=== PATIENT | male | born 1980 | race Caucasian/White ===

== ENCOUNTER 2023-08-07 18:01 | Emergency (ER) | payer BC, SELFPAY ==
[2023-08-07 18:09] VITALS: BP 102/70; PULSE 82; RESP 18; TEMP 35.9; O2SAT 99; BMI 25.0
[2023-08-07 19:11] LABS: PCR FLU A Negative PCR FLU A (Negative); PCR FLU B Negative PCR FLU B (Negative); PCR RSV Negative PCR RSV (Negative); SARS PCR* POSITIVE SARS-CoV-2 (Negative)
--- NOTE | 2023-08-07 19:19 | ED_ITS ---
HPI - General Adult General Date Seen: 08/07/23 Chief complaint: Cough Stated complaint: Cough Time Seen by Provider: 08/07/23 18:18 Source: patient Mode of arrival: ambulatory Limitations: no limitations History of Present Illness HPI narrative: Patient is a 42-year-old male who is here with flu symptoms for the past 5 days or so. Decided to come in today because he says despite taking cold medicines at home he is not able to kick the illness. Nothing specifically worse today. He has not run fevers. He has felt fatigued, achy, congested, cough. No ill contacts. Denies medical history, does smoke. Related Data Home Medications Medication Instructions Recorded Confirmed No Known Home Medications 11/09/22 08/07/23 Allergies Allergy/AdvReac Type Severity Reaction Status Date / Time No Known Drug Allergies Allergy Verified 08/07/23 18:13 Review of Systems Status of ROS: Reports: 6 or more systems reviewed and unremarkable except as noted in History and below PFSH PFS Social History Smoking Status: Current every day smoker Do you use any of these nicotine containing products: None Second hand tobacco smoke exposure: Yes How often do you have a drink containing alcohol: 2-3 times a week How many standard drinks containing alcohol do you have on a typical day: 1 or 2 How often do you have six or more drinks on one occasion: Never AUDIT-C Alcohol total score: 3 Non-prescribed substance use: denies use Exam Narrative: Exam Narrative: Vital signs as noted above. In general, an alert, well-appearing patient. Head: Normocephalic, atraumatic. Eyes: Pupils are equal reactive. Extraocular movements are full. Conjunctivae are normal. ENT: Mucous membranes are moist. Throat is normal. Neck: Supple without lymphadenopathy. Heart: Regular rate and rhythm. No murmur or rub. Lungs: Clear bilaterally. No increased work of breathing, crackles or wheezes. Neurologic: Patient is alert and oriented to person and place. Speech is fluent. Face is symmetric. Moves all extremities equally. Affect: Normal. Skin: Warm and dry. Well perfused. Const: Vital Signs, click to edit/add: Vital Signs - 24 hr 08/07/23 18:09 Temperature 96.7 F L Pulse Rate [Pulse Oximeter] 82 Respiratory Rate 18 Blood Pressure [Ri ght Upper Arm] 102/70 Pulse Oximetry 99 Oxygen Delivery Me thod Room Air Documenting provider has reviewed patient's vital signs: yes Course Course ED Course: We started with viral testing. Discussed with him that his lungs are clear, O2 sats are normal, and in general exam is benign and symptoms are suggestive of a viral process. Discussed that we could do some additional workup in the form of imaging and or labs if viral testing was negative. He was hopeful for a viral diagnosis as he did not really want additional testing. In the end, COVID returned positive. I have discussed this with him. He is on day 5 of illness, no clear indication here for Paxlovid in any case. Supportive care, return for worsening. Primary care follow-up if not improving over the next 7-10 days. Vital Signs Vital signs: Initial Vital Signs Temperature 96.7 F L 08/07/23 18:09 Temperature Source Temporal Artery Scan 08/07/23 18:09 Pulse Rate 82 08/07/23 18:09 Respiratory Rate 18 08/07/23 18:09 Blood Pressure 102/70 08/07/23 18:09 Blood Pressure Mean 80 08/07/23 18:09 Blood Pressure Position Sitting 08/07/23 18:09 Pulse Oximetry 99 08/07/23 18:09 Oxygen Delivery Method Room Air 08/07/23 18:09 Vital Signs Temperature 96.7 F L 08/07/23 18:09 Pulse Rate 82 08/07/23 18:09 Respiratory Rate 18 08/07/23 18:09 Blood Pressure 102/70 08/07/23 18:09 Pulse Oximetry 99 08/07/23 18:09 Oxygen Delivery Method Room Air 08/07/23 18:09 Temperature 96.7 F L 08/07/23 18:09 Pulse Rate 82 08/07/23 18:09 Respiratory Rate 18 08/07/23 18:09 Blood Pressure 102/70 08/07/23 18:09 Pulse Oximetry 99 08/07/23 18:09 Oxygen Delivery Method Room Air 08/07/23 18:09 Medical Decision Making Lab Data Labs: Lab Results 08/07/23 Range/Units 18:15 SARS-CoV-2 (PCR) POSITIVE SARS-CoV-2 A (Negative) Influenza Type A (PCR) Negative PCR FLU A (Negative) Influenza Type B (PCR) Negative PCR FLU B (Negative) RSV (PCR) Negative PCR RSV (Negative) Discharge Plan Discharge Clinical Impression: COVID-19 Patient Disposition: Home, Self-Care Condition: Stable Instructions: COVID-19 (Coronavirus Disease 2019) (ED) Additional Instructions: Supportive care, ibuprofen and/or Tylenol, fluids, rest. Return for worsening symptoms. Anticipate gradual improvement over the next 7-10 days. Prescriptions: No Action No Known Home Medications Follow Up/Referrals: Provider,Not a Local [Primary Care Provider] - Stand Alone Forms: [employer] Info Instructions
== END 2023-08-07 19:27 | disposition home or self-care (01) ==
PROVIDERS: Emergency Provider Emergency Medicine
DX: U07.1 COVID-19 (principal)
CPT/HCPCS: 87631; 99282; 99283